=== PATIENT | male | born 1970 | race Hispanic/Latino ===

== ENCOUNTER 2017-09-02 15:22 | Emergency (ER) | payer OTHER ==
[2017-09-02 15:31] VITALS: RESP 18
[2017-09-02] MEDS ORDERED: Sodium Chloride 0.9% 1,000 ML IV STA ×2 (15:46→17:16)
--- NOTE | 2017-09-02 16:21 | ED PDOC ---
HPI: General Adult Time Seen by Provider: 09/02/17 15:45 Chief Complaint (Nursing): GI Problem Chief Complaint (Provider): Abdominal Pain/Weakness History Per: Patient History/Exam Limitations: no limitations Onset/Duration Of Symptoms: Days (x5) Additional Complaint(s): David Briggs is a 47 year old male with a history of alcohol abuse that is accompanied by his and presents to the ED with a chief complaint of nausea , multiple episodes of vomiting, epigastric pain, and generalized weakness that he has been experiencing for the past five days. Patient denies ever completing a prior etoh detox program, as well as denies any suicidal thoughts, depression , melena, hematemesis, or chest pain. He admits to feeling anxious and shaky whenever he attempts to stop drinking. Past Medical History Reviewed: Historical Data, Nursing Documentation, Vital Signs Vital Signs: Last Vital Signs Temp 97.7 F 09/02/17 15:27 Pulse 108 H 09/02/17 15:27 Resp 18 09/02/17 15:27 BP 161/93 H 09/02/17 15:27 Pulse Ox 99 09/02/17 16:25 - Medical History PMH: No Chronic Diseases - Surgical History Surgical History: No Surg Hx - Family History Family History: States: Unknown Family Hx - Social History Alcohol: > 2 Drinks/Day Drugs: Denies - Home Medications Home Medications: Ambulatory Orders Medication Instructions Recorded Lorazepam [Ativan] 0.5 mg PO TID PRN #5 tab 09/02/17 - Allergies Allergies/Adverse Reactions: Allergies Allergy/AdvReac Type Severity Reaction Status Date / Time No Known Allergies Allergy Verified 09/02/17 15:26 Review of Systems Constitutional: Positive for: Weakness Gastrointestinal: Positive for: Nausea, Vomiting, Abdominal Pain (epigastric pain). Negative for: Melena, Hematemesis Psych: Negative for: Depression, Suicidal ideation Physical Exam - Reviewed Nursing Documentation Reviewed: Yes Vital Signs Reviewed: Yes - Physical Exam Appears: Positive for: Non-toxic, No Acute Distress Head Exam: Positive for: ATRAUMATIC, NORMOCEPHALIC Skin: Positive for: Normal Color, Warm Eye Exam: Positive for: Normal appearance, EOMI, PERRL Cardiovascular/Chest: Positive for: Regular Rate, Rhythm. Negative for: Murmur Respiratory: Positive for: Normal Breath Sounds. Negative for: Wheezing Gastrointestinal/Abdominal: Positive for: Normal Exam, Soft. Negative for: Tenderness Extremity: Positive for: Normal ROM. Negative for: Tenderness, Swelling Neurologic/Psych: Positive for: Alert, Oriented. Negative for: Motor/Sensory Deficits - Laboratory Results Result Diagrams: 09/02/17 16:59 09/02/17 16:59 - ECG O2 Sat by Pulse Oximetry: 99 (RA) Pulse Ox Interpretation: Normal Medical Decision Making Medical Decision Making: Impression: Withdrawal Syndrome vs. Hypertension Plan: * EKG * CMP * CBC * Lipase * Urinalysis * Pepcid 20 mg IV * Zofran 4 mg IV * NaCl 1000 mLs at 1000 mLs/hr * Reevaluation Patient's BP mildly elevated on arrival, patient is concerned it is early sign of undiagnosed hypertension or withdrawal syndrome. ativan 0.5mg IV given for withdrawal. Unable to give librium due to LFTs. Patient likely stable for outpatient followup and Rx for ativan 0.5mg #5 written but he then requestied inpatient detox due to young daughter at home ( will care for) and his desire for detox success. Called [facility] at 715p [phone] to see if bed available. Patient signed HIPAA consent for release of information to [facility]. Catie at [facility] will be returning call. Endorse 8p Dr Brooks Scribe Attestation: Documented by Anjali Lord, acting as a scribe for Ajit Green III, DO. Provider Scribe Attestation: All medical record entries made by the Scribe were at my direction and personally dictated by me. I have reviewed the chart and agree that the record accurately reflects my personal performance of the history, physical exam, medical decision making, and the department course for this patient. I have also personally directed, reviewed, and agree with the discharge instructions and disposition. Disposition - Clinical Impression Clinical Impression: Alcohol abuse, Alcohol withdrawal - Patient ED Disposition Is Patient to be Admitted: Transfer of Care Counseled Patient/Family Regarding: Studies Performed, Diagnosis, Need For Followup - Disposition Referrals: Alcoholics Anonymous [Outside] Disposition Time: 20:20 Condition: STABLE Additional Instructions: DO NOT DRINK WHILE TAKING ATIVAN. THIS MAY CAUSE A SEVERE REACTION AND LEAD TO OVERDOSE. Prescriptions: Lorazepam [Ativan] 0.5 mg PO TID PRN #5 tab PRN Reason: Other Instructions: At-Risk Alcohol Use (ED), Alcohol Withdrawal (ED) Forms: [employer] (Sinhala)
[2017-09-02] MEDS ORDERED: Thiamine 100 mg/ml Inj IM ONE (17:16)
[2017-09-02 17:17] LABS: RBC URINE < 1 /hpf (0-3); URINE BILIRUBIN NEGATIVE (NEGATIVE); URINE BLOOD NEGATIVE (NEGATIVE); URINE COLOR STRAW (YELLOW); URINE GLUCOSE (UA) NEG (Normal); URINE KETONE NEGATIVE (NEGATIVE); URINE LEUKOCYTE ESTERASE NEG Leu/uL (Negative); URINE PROTEIN NEGATIVE (NEGATIVE); URINE UROBILINOGEN 0.2-1.0 mg/dL (0.2-1.0); WBC URINE < 1 /hpf (0-5)
[2017-09-02 17:18] LABS: BASO # 0.1 K/uL (0.0-0.2); BASO % 1.3 % (0.0-2.0); EOS % 0.2 % (0.0-4.0); HEMATOCRIT 49.2 % (35.0-51.0); LYMPH # 1.8 K/uL (1.0-4.3); LYMPH % 31.7 % (20.0-40.0); MEAN CORPUSCULAR HEMOGLOBIN 32.8 pg (27.0-31.0); MEAN CORPUSCULAR HGB CONC 34.2 g/dL (33.0-37.0); MEAN PLATELET VOLUME 8.4 fl (7.2-11.7); MONO # 0.8 K/uL (0.0-0.8); MONO % 13.7 % (0.0-10.0); NEUT % 53.1 % (50.0-75.0); NRBC % 1.5 % (0.0-0.0); RED CELL DISTRIBUTION WIDTH 13.5 % (11.5-14.5); WHITE BLOOD COUNT 5.6 K/uL (4.8-10.8)
[2017-09-02] MEDS ORDERED: Magnesium Sulfate 1 gm in D5W 1 GM/100 ML BAG IVPB ONE (17:30)
[2017-09-02 17:35] LABS: ALB/GLOB RATIO 1.4 (1.0-2.1); ALCOHOL SERUM 177 mg/dl (0-10); ALKALINE PHOSPHATASE 89 U/L (38-126); ALT/SGPT 226 U/L (21-72); AST/SGOT 304 U/L (17-59); BILIRUBIN,TOTAL 1.3 mg/dl (0.2-1.3); BLOOD UREA NITROGEN 6 mg/dl (9-20); CALCIUM 9.5 mg/dL (8.4-10.2); CARBON DIOXIDE 21 mmol/L (22-30); CHLORIDE 99 mmol/L (98-107); GFR AFRICAN-AMERICAN > 60; GLUCOSE,RANDOM 110 mg/dL (75-110); LIPASE 244 U/L (23-300); POTASSIUM 3.7 MMOL/L (3.6-5.0); SODIUM 140 mmol/l (132-148); TOTAL PROTEIN 8.2 G/DL (6.3-8.2)
[2017-09-02] MEDS ORDERED: Thiamine 100 mg/ml Inj ONE (17:35)
[2017-09-02 21:21] VITALS: BP 145/86; PULSE 82; TEMP 98; O2SAT 97
--- NOTE | 2017-09-02 21:42 | ED PDOC ---
- Laboratory Results Result Diagrams: 09/02/17 16:59 09/02/17 16:59 - ECG O2 Sat by Pulse Oximetry: 97 Medical Decision Making Medical Decision Making: Time: 19:00 Patient is signed over to me by Dr. Green pending crisis evaluation. Time: 21:30 Provider received a call from Deandra, who is a RN coordinator at [facility] and she asked for patient intake over phone. Time: 22:00 Deandra, the communications technician from [facility] had a discussion with the patient and set up an appointment at 10:30 tomorrow at [place]. Patient was provided the facility address and other pertinent information. Patient is medically stable and will be discharged home. Diagnosis: Alcoholism Scribe Attestation: Documented by Lacy Melton acting as a scribe for Daerll Brooks MD. Scribe Attestation: All medical record entries made by the Scribe were at my direction and personally dictated by me. I have reviewed the chart and agree that the record accurately reflects my personal performance of the history, physical exam, medical decision making, and the department course for this patient. I have also personally directed, reviewed, and agree with the discharge instructions and disposition. Disposition - Clinical Impression Clinical Impression: Alcohol abuse, Alcohol withdrawal - POA Present On Arrival: None - Disposition Referrals: Alcoholics Anonymous [Outside] Disposition: Routine/Home Disposition Time: 19:00 Condition: STABLE Additional Instructions: DO NOT DRINK WHILE TAKING ATIVAN. THIS MAY CAUSE A SEVERE REACTION AND LEAD TO OVERDOSE. Prescriptions: Lorazepam [Ativan] 0.5 mg PO TID PRN #5 tab PRN Reason: Other Instructions: At-Risk Alcohol Use (ED), Alcohol Withdrawal (ED) Forms: [employer] (Sinhala)
--- NOTE | 2017-09-03 11:00 | CARD ---
APPROVED REPORT EKG Measurement Heart [id number] <Conclusion> Normal sinus rhythm Left axis deviation Abnormal ECG
== END 2017-09-02 22:10 | disposition home or self-care (01) ==
LOC: H.ER 15:22
DX: F10.239 Alcohol dependence with withdrawal, unspecified (principal); I10 Essential (primary) hypertension
CPT/HCPCS: 80053; 80320; 81003; 83690; 83735; 85025; 93005; 96361; 96372; 96374; 96375; 96376; 99284; J2060; J2405; J3411; J3475; J7040